=== PATIENT | female | born 1960 | race Caucasian/White ===

== ENCOUNTER → 2017-05-17 | Outpatient (CLI) | payer BC ==
[~2017-05-17] MED LIST: CEPH500 PO; CONESTTC VAG; LORYNA 3 MG-0.1 EACH PO; Pyridium200 MG PO; Woman's Laxative5 MG PO
[2017-05-19 15:18] LABS: HPV Genotype 16 Not Detected (NOTDET); HPV Genotype 18 Not Detected (NOTDET)
[2017-05-25 19:07] LABS: HPV High Risk Other Not Detected (NOTDET)
== END ==
LOC: LAB 13:12
PROVIDERS: Registered Nurse Community Health
DX: Z12.4 Encounter for screening for malignant neoplasm of cervix (principal)
CPT/HCPCS: 87624; G0123

== ENCOUNTER 2018-01-12 01:56 | Emergency (ER) | payer BC ==
[~2018-01-12] VITALS: Ht 167.6 cm; Wt 65.8 kg
[2018-01-12 02:12] LABS: Source, Urine Clean Catch
[2018-01-12 02:16] LABS: Blood, Urine 3+ (Neg); Glucose Qualitative, Urine Neg (Neg); Ketones, Urine Neg (Neg); Leukocyte Esterase, Urine 3+ (Neg); Nitrite, Urine Pos (Neg); Protein, Urine Neg (Neg); Specific Gravity, Urine 1.015 (1.003-1.022); Urobilinogen, Urine 2+ (Normal)
[2018-01-12 02:22] LABS: Bilirubin, Urine 1+ (Neg); Color, Urine Orange (P-Yellow)
[2018-01-12 02:23] LABS: Appearance, Urine Hazy (Clear); Bacteria Mod /hpf; Red Blood Cells, Urine 0-2 /hpf (0-2); Squamous Epithelial Cells Not Seen /hpf (Few); White Blood Cells, Urine TNTC /hpf (0-5)
[2018-01-12] MEDS ORDERED: CEPH500 PO (02:40)
[2018-01-12] MEDS ORDERED: Pyridium200 MG PO (02:40)
== END 2018-01-12 02:53 | disposition home or self-care (01) ==
LOC: ER 01:56
PROVIDERS: Emergency Medicine
DX: N39.0 Urinary tract infection, site not specified (principal); Z88.0 Allergy status to penicillin
CPT/HCPCS: 81001; 87077; 87086; 87186; 99283

== ENCOUNTER 2018-12-07 20:57 | Emergency (ER) | payer BC ==
[~2018-12-07] VITALS: Ht 154.9 cm; Wt 50.8 kg
[2018-12-07] MEDS ORDERED: PROG100 PO (21:10)
[2018-12-07] MEDS ORDERED: Premarin0.3 MG (21:10)
[2018-12-07 21:20] LABS: Source, Urine Clean Catch
[2018-12-07 21:26] LABS: Blood, Urine 4+ (Neg); Glucose Qualitative, Urine Neg (Neg); Ketones, Urine Neg (Neg); Leukocyte Esterase, Urine 3+ (Neg); Nitrite, Urine Pos (Neg); Protein, Urine Neg (Neg); Urobilinogen, Urine 1+ (Normal)
[2018-12-07 21:41] LABS: Appearance, Urine Clear (Clear); Bilirubin, Urine 1+ (Neg); Color, Urine Amber (P-Yellow)
[2018-12-07 21:44] LABS: Bacteria Few /hpf; Squamous Epithelial Cells Rare /hpf (Few)
[2018-12-07] MEDS ORDERED: CEPH500 PO (21:49)
[2018-12-07] MEDS ORDERED: Pyridium200 MG PO (21:49)
== END 2018-12-08 21:57 | disposition home or self-care (01) ==
LOC: ER 20:57
PROVIDERS: Physician Assistant
DX: N39.0 Urinary tract infection, site not specified (principal); Z88.0 Allergy status to penicillin
CPT/HCPCS: 81001; 87077; 87086; 87186; 99283

== ENCOUNTER → 2018-12-25 | Outpatient (CLI) | payer BC ==
[~2018-12-25] MED LIST changes: +PROG100 PO; +Premarin0.3 MG
== END ==
LOC: LAB SHORT 11:30 → LAB 11:30
DX: R30.0 Dysuria (principal)
CPT/HCPCS: 87077; 87086; 87186

== ENCOUNTER → 2020-01-02 | Outpatient (CLI) | payer BC | LOC: PLD 07:54 → LAB SHORT 07:54 | DX: D22.5 Melanocytic nevi of trunk (principal); D22.39 Melanocytic nevi of other parts of face | CPT/HCPCS: 88305 ==

== ENCOUNTER → 2020-07-30 | Outpatient (CLI) | payer BC ==
[2020-08-04 10:07] LABS: HPV 16 Negative (Negative); HPV 18 Negative (Negative); HPV OTHER HR TYPES Negative (Negative)
== END ==
LOC: LAB SHORT 17:25
PROVIDERS: Registered Nurse Community Health
DX: Z12.4 Encounter for screening for malignant neoplasm of cervix (principal)
CPT/HCPCS: 87624; G0123

== ENCOUNTER → 2022-07-06 | Outpatient (CLI) | payer BC ==
[2022-07-06 19:51] LABS: BASOPHILS ABSOLUTE AUTO 0.03 K/mm3 (0.00-0.23); BASOPHILS PERCENT AUTO 1 % (0-2); EOSINOPHILS PERCENT AUTO 2 % (0-6); Hematocrit 42.1 % (33.0-51.0); Hemoglobin 14.2 g/dL (11.5-16.0); IMMATURE GRAN ABSOLUTE AUTO 0.01 K/mm3 (0.00-0.10); IMMATURE GRAN PERCENT AUTO 0 % (0-1); LYMPHOCYTES ABSOLUTE AUTO 1.31 K/mm3 (0.84-5.20); LYMPHOCYTES PERCENT AUTO 28 % (21-46); MONOCYTES ABSOLUTE AUTO 0.39 K/mm3 (0.16-1.47); MONOCYTES PERCENT AUTO 8 % (4-13); Mean Corpuscular HGB Conc 33.7 g/dL (31.5-36.5); Mean Corpuscular Volume 86 fL (80-100); Mean Platelet Volume 10.2 fL (9.1-12.4); NEUTROPHILS ABSOLUTE AUTO 2.87 K/mm3 (1.96-9.15); NEUTROPHILS PERCENT AUTO 61 % (41-73); Platelet Count 241 K/mm3 (150-400); RDW Coefficient Variation 12.5 % (11.7-14.2); RDW Standard Deviation 39.5 fL (35.1-46.3); White Blood Cell Count 4.71 K/mm3 (4.00-11.30)
[2022-07-06 22:58] LABS: Albumin, Blood 3.9 g/dL (3.4-5.0); Albumin/Globulin Ratio 1.1 (0.8-1.8); Bilirubin, Total 0.3 mg/dL (0.1-1.0); Bun/Creatinine Ratio 27.3 (12.0-20.0); Calcium, Blood 9.5 mg/dL (8.5-10.1); Creatinine, Blood 0.66 mg/dL (0.40-1.00); Globulin, Blood 3.6 g/dL (2.2-4.0); Potassium, Blood 4.5 mmol/L (3.5-5.5); Total Protein, Blood 7.5 g/dL (6.4-8.2)
== END | disposition home or self-care (01) ==
LOC: LAB 16:20 → LAB SHORT 16:20
PROVIDERS: Registered Nurse Community Health
DX: Z01.419 Encounter for gynecological examination (general) (routine) without abnormal findings (principal)
CPT/HCPCS: 80053; 85025

== ENCOUNTER 2024-02-21 06:32 | Day surgery (SDC) | payer BC ==
[~2024-02-21] VITALS: Ht 154.9 cm; Wt 58.9 kg
[~2024-02-21 06:32] MED LIST changes: +Estradiol0.5 MG PO
[2024-02-21] MEDS ORDERED: VITAMIN D310 MC4 (06:54)
[2024-02-21] MEDS ORDERED: propofoL 50 ML IV ONE (07:37)
[2024-02-21] MEDS ORDERED: Lactated Ringer's 1,000 ML IV ONE ×2 (07:37→07:59)
--- NOTE | 2024-02-21 08:00 | NUR ---
02/21/24 0800 Cheyenne Baez PT. DENIES ANY PAIN.
[2024-02-21 08:41] VITALS: BP 119/71
== END 2024-02-21 08:44 | disposition home or self-care (01) ==
LOC: ORSCSDS 06:32
PROVIDERS: Specialist
PROC: 0DJD8ZZ Inspection of Lower Intestinal Tract, Via Natural or Artificial Opening Endoscopic (ICD-10-PCS; principal; 2024-02-21 08:00)
DX: Z12.11 Encounter for screening for malignant neoplasm of colon (principal); K64.8 Other hemorrhoids
CPT/HCPCS: J2704; J7120